=== PATIENT | female | born 1955 | race Caucasian/White ===

== ENCOUNTER → 2024-06-05 | Outpatient (CLI) | payer MEDICARE, SELFPAY ==
--- NOTE | 2024-06-05 07:15 | XR_ITS ---
Examination: Breast ultrasound, unilateral, left complete Date and time of exam: June 05, 2024 0724 hours INDICATIONS: Mammogram 02/04/2024 5 mm nodule upper outer left breast Technique: Real-time santiago scale ultrasonographic imaging performed left breast including all 4 quadrants as well as nipple retroareolar and axillary region. Findings: No cystic or solid mass IMPRESSION: BI-RADS Category 1: Negative study
--- NOTE | 2024-06-05 08:00 | XR_ITS ---
Examination: Diagnostic digital mammography, unilateral, left Computer aided detection 3-D breast Tomosynthesis, unilateral Date and time of exam: June 05, 2024 0737 hours INDICATIONS: Mammogram 02/04/2024 5 mm nodule outer left breast Technique: Nonmagnified MLO, CC views of the left breast have been obtained, reconstructed from 3-D Tomosynthesis images. R2 computer aided detection program utilized for evaluation of suspicious masses and/or abnormal calcifications. 3-D Tomosynthesis images obtained. Findings: The breast is heterogeneously dense, which may obscure small masses 5 mm focal asymmetry is confirmed nipple level left breast on the spot compression cc view Impression: BI-RADS category 3: Probably benign findings One additional 6 month left mammogram follow-up is needed including spot compression cc view to document stability of 5 mm focal asymmetry described above
== END | disposition home or self-care (01) ==
PROVIDERS: PCP Advanced Practice Midwife; Referring Provider Advanced Practice Midwife; Visit Provider Advanced Practice Midwife
DX: R92.332 Mammographic heterogeneous density, left breast (principal); N64.89 Other specified disorders of breast
CPT/HCPCS: 76641; 77061; 77065; G0279

== ENCOUNTER → 2024-09-29 | Outpatient (CLI) | payer MEDICARE, SELFPAY ==
--- NOTE | 2024-09-29 16:30 | XR_ITS ---
Examination: CT abdomen without intravenous contrast. Coronal 2-D reconstructions. Sagittal 2-D reconstructions. Date and time of exam:September 29, 2024 1634 hours INDICATIONS: Left upper abdominal pain beginning one week ago, outside abdomen sonogram last week left kidney mass CTDI: vol (mGy): 5.7 DLP: (mGycm): 190 Technique: Axial images of the abdomen have been obtained, 3 mm slice thickness, without intravenous contrast 2-D sagittal coronal reconstructions Low dose protocols were performed. One or more of the following dose reduction techniques were used; automated exposure control, adjustment of the mA and/or KV according to patient size, use of iterative reconstruction technique. Findings: 2 mm pulmonary nodule left lower lobe 4 mm pulmonary nodule lingular segment 8 mm pulmonary nodule right lower lobe 13 mm pulmonary nodule left lower lobe No focal liver or splenic lesions Absent gallbladder No pancreatic mass No adrenal mass Fat-containing mass right kidney, 19 mm Low density mass lower pole left kidney, 12 mm Aorta normal size No bowel obstruction IMPRESSION: Multiple pulmonary nodules as above, recommend CT chest without contrast follow-up to exclude pulmonary nodular metastatic disease Bilateral renal masses, recommend MRI abdomen kidneys follow up pre and post contrast to assess these renal masses
== END | disposition home or self-care (01) ==
LOC: CCTX 16:06
PROVIDERS: PCP Family Medicine
DX: R91.8 Other nonspecific abnormal finding of lung field (principal); N28.89 Other specified disorders of kidney and ureter
CPT/HCPCS: 74150

== ENCOUNTER 2024-11-13 21:57 | Emergency (ER) | payer MEDICARE, BC, SELFPAY ==
[2024-11-13 21:59] VITALS: BMI 22.3
[2024-11-13 22:10] VITALS: BP 144/93; PULSE 75; RESP 20; TEMP 36.4; O2SAT 98
--- NOTE | 2024-11-13 22:20 | XR_ITS ---
Examination: CT abdomen and pelvis without contrast. Coronal 3-D reconstructions. Sagittal 2-D reconstructions. Date and time of exam:November 13, 2024 11:11 PM INDICATIONS: Onset left flank pain today CTDI: vol (mGy): 6 DLP: (mGycm): 369 Technique: Axial images of the abdomen have been obtained, 3 mm slice thickness Intravenous contrast material has not been administered. Low dose protocols were performed. One or more of the following dose reduction techniques were used; automated exposure control, adjustment of the mA and/or KV according to patient size, use of iterative reconstruction technique. Findings: No change in pulmonary nodules lower lung zones No focal liver or splenic lesion No pancreatic or adrenal mass Stable 19 mm fat-containing right renal mass and 12 mm posterior lower left renal mass No hydronephrosis or ureteral calculi Aorta normal size No pericecal inflammatory change Multiple calcified uterine fibroids,. 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 Urinary bladder wall thickening, differential would include cystitis
[2024-11-13] MEDS: KETOROLAC INJ 60 MG/2 ML VIAL 30 MG IM (22:49)
[2024-11-13 23:08] LABS: Basophils # (Auto) 0.1 Thou/mm3 (0.0-0.2); Basophils % (Auto) 2 % (0-2.5); Eosinophils # (Auto) 0.6 Thou/mm3 (0.0-0.5); Eosinophils % (Auto) 10 % (0-10); Hematocrit 35.8 % (36.0-46.0); Hemoglobin 12.2 g/dL (12.0-16.0); Immature Granulocytes % (Auto) 0 % (0-0); Immature Granulocytes Auto 0.01 Thou/mm3 (0.00-0.00); Lymphocytes # (Auto) 1.6 Thou/mm3 (1.0-4.8); Lymphocytes % (Auto) 28 % (10-50); Mean Corpuscular HGB Conc 34.1 g/dl (31.0-37.0); Mean Corpuscular Volume 88 fL (80-100); Monocytes # (Auto) 0.7 Thou/mm3 (0.0-0.8); Monocytes % (Auto) 13 % (0-12); Neutrophils # (Auto) 2.6 Thou/mm3 (1.8-7.7); Neutrophils % (Auto) 47 % (37-80); Nucleated Red Blood Cell % 0 /100 WBC (0); Platelet Count 315 Thou/mm3 (140-440); RDW Standard Deviation 40.3 fL (36.4-46.3); Red Blood Count 4.06 Miln/mm3 (4.00-5.20); White Blood Count 5.6 Thou/mm3 (3.6-11.0)
[2024-11-13 23:20] LABS: Collection Type, Urine Clean Catch
[2024-11-13 23:26] LABS: Alanine Aminotransferase 131 U/L (10-49); Albumin, Serum 4.3 gm/dL (3.4-4.8); Albumin/Globulin Ratio 1.9 (1.2-2.2); Alkaline Phosphatase 274 U/L (46-116); Anion Gap 8 (7-16); Aspartate Amino Transferase 126 U/L (0-34); BUN/Creatinine Ratio 31 Ratio (12-20); Bilirubin,Total 0.4 mg/dL (0.3-1.2); Blood Urea Nitrogen 31 mg/dL (9-23); Calcium 10.3 mg/dL (8.3-10.6); Calcium (Corrected) 10.3 mg/dL (8.5-10.1); Carbon Dioxide 23.7 mMol/L (20.0-31.0); Chloride 105 mMol/L (98-107); Estimated Creatinine Clearance 46.5 mL/min (>60); Globulin 2.3 gm/dL (2.3-3.5); Glucose 112 mg/dL (74-106); Lipase 72 U/L (12-53); Osmolality,Calculated 281 (275-295); Potassium 4.1 mMol/L (3.4-5.1); Sodium 137 mMol/L (136-145); Total Protein 6.6 gm/dL (5.7-8.2); eGFR > 60 See Note
[2024-11-13 23:28] LABS: Bilirubin,Urine Negative (Negative); Blood,Urine Negative (Negative); Clarity,Urine Clear (Clear/Hazy); Color,Urine Yellow (Lt Yel-Yel); Glucose, Urine Negative (Negative); Ketones,Urine Trace (Negative); Leukocyte Esterase,Urine 2+ (Negative); Nitrite,Urine Negative (Negative); Protein,Urine Negative (Neg - Trace); Specific Gravity,Urine 1.025 (1.001-1.035)
[2024-11-13 23:41] LABS: RBC,Urine 3 /hpf (0-3); WBC,Urine 153 /hpf (0-5)
[2024-11-13 23:44] LABS: Culture Indicated,Urine Contaminated; Squamous Epithelial Cell,Urine 25 /hpf (0-5)
[2024-11-13 23:45] LABS: Bacteria,Urine 1+
[2024-11-13 23:46] LABS: Mucus,Urine 2+ /lpf
[2024-11-13 23:47] LABS: Calcium Oxalate Crystals,Urine 3+
[2024-11-14] MEDS: ONDANSETRON ODT 4 MG TABRAP PO (00:43)
[2024-11-14] MEDS: cefTRIAXone 1,000 MG, LIDOCAINE 1% 20 ML 2.1 ML IM (00:44)
[2024-11-14] MEDS: MORPHINE SULF INJ 10 MG/ML VIAL 5 MG IM (00:44)
[2024-11-14 01:08] VITALS: RESP 16
--- NOTE | 2024-11-14 04:04 | EDNOTE_ITS ---
<Statement entered by Blanquita Kuo MD - 11/25/24 21:11> As co-signing physician, I was present and available for consult prn. I concur with the plan and care as documented by the midlevel provider. ED Back Injury Pain RME/HPI General Chief Complaint: Back Pain/Injury Stated Complaint: LEFT FLANK PAIN Time Seen by Provider: 11/13/24 22:20 Arrival date/time: 11/13/24 21:57 69F with history of HTN and known L kidney mass pending work-up at [facility] presents to ED with several days of L flank pain. Patient denies hematuria/dysuria and N/V. Limitations: no limitations Related Data Previous Rx's ?Medication ?Instructions ?Recorded hydrocodone 5 mg-acetaminophen 300 1 tab PO Q6H #10 ta bs 07/15/18 mg tablet ibuprofen 600 mg tablet 600 mg PO Q6H #60 tabs 07/15 amoxicillin 500 mg tablet 500 mg PO BID #14 tabs 12/31 lisinopril 20 mg tablet 20 mg PO QDAY #30 tabs 12/31 cefuroxime axetil 500 mg tablet 500 mg PO BID 7 days # 14 tabs 11/14/24 Allergies Allergy/AdvReac Type Severity Reaction Status Date / Time codeine Allergy Intermediate Vomiting Verified 11/13/24 21:58 hydrocodone Allergy Intermediate Vomiting Verified 11/13/24 21:58 Review of Systems Review of Systems Systems Reviewed: All systems reviewed, normal except as documented Constitutional Constitutional: Reports system reviewed and no additional complaints, except as documented, Denies fever(s) and Denies headache(s) ENT Ears, Nose, Mouth, and Throat: Denies disequilibrium and Denies headache(s) Cardiovascular Cardiovascular: Reports system reviewed and no additional complaints, except as documented, Denies chest pain and Denies dyspnea Respiratory Respiratory: Reports system reviewed and no additional complaints, except as documented, Denies cough and Denies dyspnea Gastrointestinal Gastrointestinal: Reports system reviewed and no additional complaints, except as documented, Denies abdominal pain, Denies nausea and Denies vomiting Genitourinary Genitourinary: Reports as per HPI and Reports flank pain Neurologic Neurologic: Reports system reviewed and no additional complaints, except as documented, Denies confusion, Denies disequilibrium and Denies headache(s) Psychiatric Psychiatric: Denies confusion Past Medical History Social History SMOKING STATUS: Never smoker ED Exam General Limitations: Present no limitations General appearance: Present alert and in no apparent distress Head Head exam: Present atraumatic Eye Eye exam: Present normal appearance, PERRL and EOMI ENT ENT exam: Present normal exam, normal oropharynx and mucous membranes moist Neck Neck exam: Present normal inspection, full ROM and trachea midline Chest Chest inspection: Present normal inspection and symmetric chest wall rise Respiratory Respiratory exam: Present normal lung sounds bilaterally Cardiovascular Cardiovascular exam: Present regular rate, normal rhythm and normal heart sounds Abdominal Exam Abdominal exam: Present soft and normal bowel sounds Extremities Exam Extremities exam: Present normal inspection and full ROM Back Exam Back exam: Present normal inspection and full ROM Neurological Exam Neurological exam: Present alert, oriented X3 and CN II-XII intact Psychiatric Psychiatric exam: Present normal affect and normal mood Skin Skin exam: Present warm, dry, intact and normal color Course Quality Measures none Orders Category Date Time Status CT abdomen pelvis wo con Stat Exams 11/13/24 22:20 Completed CBC Stat Lab 11/13/24 22:40 Completed CMP [Comprehensive Metabolic Panel] Stat Lab 11/13/24 22:40 Completed Lipase Stat Lab 11/13/24 22:40 Completed Urinalysis, C/S if Indicated Stat Lab 11/13/24 23:11 Completed Ketorolac Inj [Toradol Inj] Med 11/13/24 22:20 Discontinued 30 mg IM X1 ONE Morphine Inj Med 11/14/24 00:33 Discontinued 5 mg IM X1 ONE Ondansetron Odt [Zofran Odt] Med 11/14/24 00:33 Discontinued 4 mg PO X1 ONE cefTRIAXone [Rocephin] 1,000 mg Med 11/14/24 00:33 Discontinued Lidocaine 1% 20 ml [Xylocaine 1% 20 ML] 2.1 ml IM X1 Vital Signs Vital signs: Vital Signs Temperature 97.5 F 11/13/24 22:10 Pulse Rate 75 11/13/24 22:10 Respiratory Rate 20 11/13/24 22:10 Blood Pressure 144/93 H 11/13/24 22:10 Pulse Oximetry (%) 98 11/13/24 22:10 Oxygen Delivery Method Room Air 11/13/24 22:10 O2 at 98% on RA and WNLs Back Pain / Injury MDM Narrative MDM Narrative:: 69F with history of HTN and known L kidney mass pending work-up at [facility] presents to ED with several days of L flank pain. Patient denies hematuria/dysuria and N/V. Physical exam reveals no flank tenderness. Patient is afebrile, alert, but appears to appears to pain. CT unremarkable except for known L kidney mass. Possible cystitis. UA confirms UTI, though it was contaminated. Will treat given pain. CMP unremarkable. Pain improved with meds. Patient data External records reviewed:: [facility] previous records Clinical information provided by:: patient Social determinants that could affect healthcare access:: none Patient has the following chronic illnesses:: HTN How is presenting disease/condition affected by chronic disease/condition?: uneffected by Evaluation data The following diagnostics were reviewed and interpreted by me:: lab results and radiology exam(s) Lab and/or radiology exams considered but not ordered:: ordered Interpretation Summary: above Medications / Prescriptions Medications or Prescriptions considered but not ordered:: ordered Medication administrations:: Medication Administration History Discontinued Medications Ceftriaxone Sodium 1,000 mg/ (Lidocaine HCl 2.1 ml) 0 mg IM X1 ONE Stop: 11/14/24 00:34 Last Admin: 11/14/24 00:44 Dose: 1,000 mg Documented By: CVL Ketorolac Tromethamine (Ketorolac Inj 60 Mg/2 Ml Vial) 30 mg IM X1 ONE Stop: 11/13/24 22:21 Last Admin: 11/13/24 22:49 Dose: 30 mg Documented By: OA Morphine Sulfate (Morphine Sulf Inj 10 Mg/Ml Vial) 5 mg IM X1 ONE Stop: 11/14/24 00:34 Last Admin: 11/14/24 00:44 Dose: 5 mg Documented By: CVL Ondansetron HCl (Ondansetron Odt 4 Mg Tabrap) 4 mg PO X1 ONE; Protocol Stop: 11/14/24 00:34 Last Admin: 11/14/24 00:43 Dose: 4 mg Documented By: CVL above Consultations Consultation(s) initiated? (list below): No Diagnosis Differential diagnosis back pain/injury: lumbar radiculopathy, sciatica, strain of lumbar region, renal colic, pyelonephritis, thoracic back pain, AAA, discitis and other (UTI) Most likely diagnosis given after review of the tests above:: UTI Admission Indicated Admission indicated?: not indicated Admission Request Was there a request for admission?: No Disposition Plan Disposition Plan: Discharge Discharge Attestation Discharge Attestation: The patient and all family members were given an opportunity to ask questions and understood the discharge instructions. Discharge instructions specifically effects, indications for sooner follow up or return to the emergency department, and the expected course of current diagnosis. Patient condition: Stable Discharge Plan Plan Patient Disposition: HOME (Self Care) Discharge Disposition comment: Stable Prescriptions/Referrals Prescriptions/Med Rec: New cefuroxime axetil 500 mg tablet 500 mg PO BID 7 Days Qty: 14 0RF No Action ibuprofen 600 mg tablet 600 mg PO Q6H Qty: 60 0RF hydrocodone-acetaminophen 5-300 mg tablet 1 tab PO Q6H MDD 4; Workers Comp Qty: 10 0RF lisinopril 20 mg tablet 20 mg PO QDAY Qty: 30 1RF amoxicillin 500 mg tablet 500 mg PO BID Qty: 14 0RF Referrals: Blanquita Farrar FNP [Primary Care Provider] - In 1 week Problem List Clinical Impression: UTI (urinary tract infection) Patient/Caregiver Discharge Instructions Education Materials: ED CYSTITIS Female Adult Additional Instructions: Please follow-up with PCP within 24-48 hours and return immediately if symptoms worsen. Good luck with [facility] appts! Print Language: [place] Stand Alone Forms: Patient Portal Info Letter FLACA/ALEXANDRE Supervising Physician FLACA/ALEXANDRE Supervising Physician: Dr. Kuo
== END 2024-11-14 01:09 | disposition home or self-care (01) ==
PROVIDERS: Physician Assistant; Emergency Provider Emergency Medicine; PCP Nurse Practitioner Family
DX: N39.0 Urinary tract infection, site not specified (principal); R10.9 Unspecified abdominal pain
CPT/HCPCS: 36415; 74176; 80053; 81001; 83690; 85025; 96372; 99284; J0696; J1885; J2270; J3490; Q0162

== ENCOUNTER 2025-01-15 09:00 | Emergency (ER) | payer MEDICARE, BC, SELFPAY ==
--- NOTE | 2025-01-15 | XR_ITS ---
Examination: MRI thoracic spine, without intravenous contrast. MRI thoracic spine , with intravenous contrast. Exam date and time: January 15, 2025 1250 hours INDICATIONS: Back pain this week, history renal tumors, osteolytic lesion destroying the T11 vertebral body extending into the spinal canal on CT chest January 15, 2025 Technique: Multiple axial, sagittal and coronal images of the thoracic spine have been obtained with the Siemens high-resolution 1.5 [employer] MRI scanner. Images obtained included T2 weighted fat suppressed sagittal sections, TR 3500, TE 46, T2 weighted coronal fat suppressed images, TR 3050, TE 84, T2-weighted transverse fat suppressed images, TR 30-60, TE 63, proton density transverse images, TR 4720, TE 46, and T1 weighted coronal images, TR 560, TE 13. Axial, sagittal and coronal images are obtained post intravenous injection 19 cc gadolinium. 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
--- NOTE | 2025-01-15 | XR_ITS ---
Examination: MRI lumbar spine, without intravenous contrast. MRI lumbar spine , with intravenous contrast. Exam date and time: January 15, 2025 1250 hours INDICATIONS: Chest pain back pain this week, history renal tumors, extensive bone destruction involving the T11 vertebral body on CT chest today Technique: Multiple axial, sagittal and coronal images of the lumbar spine have been obtained with the Siemens high-resolution 1.5 [employer] MRI scanner. Images obtained included T2 weighted fat suppressed sagittal sections, TR 3500, TE 46, T2 weighted coronal fat suppressed images, TR 3050, TE 84, T2-weighted transverse fat suppressed images, TR 30-60, TE 63, proton density transverse images, TR 4720, TE 46, and T1 weighted coronal images, TR 560, TE 13. Axial, sagittal and coronal images are obtained post intravenous injection 19 cc gadolinium. Findings: Adequate alignment lumbar vertebral bodies Partial visualization of the tumor replacing the T11 vertebral body 15 mm focus of enhancement in the L3 vertebral body which does not extend to the spinal canal, axial image 23 sagittal image 11, this appears to represent hemangiomatous change Diffuse lumbar disc narrowing most prominent L4-L5, L5-S1 IMPRESSION: No enhancing osseous metastatic lesions depicted No enhancing epidural tumor impinging upon the conus medullaris or cauda equina
--- NOTE | 2025-01-15 | XR_ITS ---
Examination: MRI abdomen with intravenous contrast. MRI abdomen without intravenous contrast. Date and time of exam: January 15, 2025 1250 hours INDICATIONS: CT abdomen study today 22 mm right renal angiomyolipoma Hypodense mass 15 mm lower left kidney Technique: Multiple axial, sagittal and coronal sections of the abdomen and 19 obtained. Transverse images, TR 6020, TE 107. T1 weighted transverse images, TR 582, TE 9.5. T2-weighted sagittal images, TR 4000, TE 105. T2-weighted sagittal images, TR 4000, TE 5. Coronal images, TR 4210, TE 107. Axial and coronal images are obtained post 19 cc intravenous injection, gadolinium. Findings: No focal liver lesions Common hepatic duct 8 mm no stones Spleen is not enlarged Fat-containing mass without enhancement right kidney, 22 mm consistent with angiomyolipoma Nonenhancing 15 mm cyst lower pole kidney, 13 mm nonenhancing cyst midpole left kidney no enhancing solid left renal mass lesion noted No ascites No adenopathy IMPRESSION: Benign left renal cysts, no solid renal mass lesion noted
[2025-01-15 09:00] VITALS: BMI 22.1
[2025-01-15 09:09] VITALS: BP 178/50; PULSE 68; RESP 18; TEMP 36.6; O2SAT 99
--- NOTE | 2025-01-15 09:21 | XR_ITS ---
Examination: CT chest, without intravenous contrast. CT abdomen, without intravenous contrast. CT pelvis, without intravenous contrast. 2-D sagittal and coronal reconstructions. 3-D reconstructions. Date and time of exam:January 18, [address] abdomen pelvis November 13, 2024 INDICATIONS: History renal tumors, left flank pain today, 12 mm posterior left lower renal mass on CT examination abdomen November 13, 2024, pulmonary nodules in the lower lung zone CTDI vol (mgy) 6.45 DLP (MGycm)446 Technique: Multiple CT images, 3.0 mm slice thickness, obtained chest, abdomen, pelvis, with the high-resolution 64 slice scanner.. Sagittal and coronal 2-D reconstructions are obtained. 3-D reconstructions Low dose protocols were performed. One or more of the following dose reduction techniques were used; automated exposure control, adjustment of the mA and/or KV according to patient size, use of iterative reconstruction technique. Findings: Multiple high periaortic lymph nodes measuring up to 10 mm 26 mm pretracheal lymph node Mild bilateral hilar lymphadenopathy Suspicious for subcarinal lymphadenopathy There are at least 25 mm bilateral subcentimeter pulmonary nodules, the largest in the right lower lobe 7 mm and 1 nodule with spiculated margins in the left lower lobe 16 mm No pneumonia or pulmonary edema Trace pericardial effusion No focal liver or splenic lesions Absent gallbladder Common hepatic duct 11 mm Right renal angiomyolipoma 22 mm Hypodense mass lower pole left kidney, 15 mm, which is difficult to assess on this noncontrast study Aortic calcification no aneurysmal dilatation No bowel obstruction No pericecal inflammatory change Anteverted uterus with multiple uterine fundal areas of calcification No bladder mass or bladder calculi Prominent osteopenia Osteolytic lesion destroying much of the central body of T11, axial image 155 sagittal image 132 which appears to extend into the spinal canal with paraspinal soft tissue mass Chronic erosions posterior margin third sacral segment IMPRESSION: 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
--- NOTE | 2025-01-15 09:22 | EDRME_ITS ---
Rapid Medical Screening Exam [facility] Arrival date/time: 01/15/25 09:00 CC: Left low back pain that now radiates to the abdomen. Abrupt onset last night has a history of chronic low back pain but never as severe as this or with abrupt onset. Took ibuprofen 800 mg 1 hour ago hours prior to that took Tylenol. States she cannot tolerate codeine medications. No active nausea or vomiting states she has been constipated for the past several days. Chief Complaint: Back Pain/Injury Time Seen by Provider: 01/15/25 09:18 Vital signs: Vital Signs Temperature 97.8 F 01/15/25 09:09 Pulse Rate 68 01/15/25 09:09 Respiratory Rate 18 01/15/25 09:09 Blood Pressure 178/50 H 01/15/25 09:09 Pulse Oximetry (%) 99 01/15/25 09:09 Oxygen Delivery Method Room Air 01/15/25 09:09
[2025-01-15] MEDS: MORPHINE SULF INJ 10 MG/ML VIAL 4 MG IVP ×3 (09:50→22:40)
[2025-01-15] MEDS: ONDANSETRON INJ 2 MG/ML INJ 2 ML 4 MG IVP (09:51)
[2025-01-15 10:16] LABS: Basophils # (Auto) 0.1 Thou/mm3 (0.0-0.2); Basophils % (Auto) 1 % (0-2.5); Eosinophils # (Auto) 0.2 Thou/mm3 (0.0-0.5); Eosinophils % (Auto) 3 % (0-10); Hematocrit 41.5 % (36.0-46.0); Hemoglobin 13.7 g/dL (12.0-16.0); Immature Granulocytes Auto 0.02 Thou/mm3 (0.00-0.00); Lymphocytes # (Auto) 1.2 Thou/mm3 (1.0-4.8); Lymphocytes % (Auto) 13 % (10-50); Mean Corpuscular HGB Conc 33.0 g/dl (31.0-37.0); Mean Corpuscular Hemoglobin 29.6 pg (25.0-35.0); Mean Corpuscular Volume 90 fL (80-100); Monocytes # (Auto) 0.8 Thou/mm3 (0.0-0.8); Monocytes % (Auto) 9 % (0-12); Neutrophils # (Auto) 6.5 Thou/mm3 (1.8-7.7); Neutrophils % (Auto) 74 % (37-80); Nucleated Red Blood Cell # 0.00 Thou/mm3 (0.00-0.00); Nucleated Red Blood Cell % 0 /100 WBC (0); Platelet Count 370 Thou/mm3 (140-440); RDW Standard Deviation 40.7 fL (36.4-46.3); Red Blood Count 4.63 Miln/mm3 (4.00-5.20); White Blood Count 8.8 Thou/mm3 (3.6-11.0)
[2025-01-15 10:35] LABS: Alanine Aminotransferase 28 U/L (10-49); Albumin, Serum 5.0 gm/dL (3.4-4.8); Albumin/Globulin Ratio 2.0 (1.2-2.2); Alkaline Phosphatase 141 U/L (46-116); Anion Gap 10 (7-16); Aspartate Amino Transferase 39 U/L (0-34); BUN/Creatinine Ratio 14 Ratio (12-20); Bilirubin,Total 0.7 mg/dL (0.3-1.2); Blood Urea Nitrogen 15 mg/dL (9-23); Calcium 11.3 mg/dL (8.3-10.6); Calcium (Corrected) 11.3 mg/dL (8.5-10.1); Carbon Dioxide 23.1 mMol/L (20.0-31.0); Chloride 103 mMol/L (98-107); Creatinine (Component) 1.1 mg/dL (0.6-1.3); Estimated Creatinine Clearance 42.3 mL/min (>60); Globulin 2.5 gm/dL (2.3-3.5); Glucose 102 mg/dL (74-106); Osmolality,Calculated 272 (275-295); Potassium 5.0 mMol/L (3.4-5.1); Sodium 136 mMol/L (136-145); Total Protein 7.5 gm/dL (5.7-8.2); eGFR 55 See Note
--- NOTE | 2025-01-15 10:37 | PD.EDBACK ---
ED Back Injury Pain RME/HPI General Chief Complaint: Back Pain/Injury Stated Complaint: BACK PAIN Time Seen by Provider: 01/15/25 09:18 Arrival date/time: 01/15/25 09:00 RME / HPI RME / HPI Narrative: 01/15/25 09:00 CC: Left low back pain that now radiates to the abdomen. Abrupt onset last night has a history of chronic low back pain but never as severe as this or with abrupt onset. Took ibuprofen 800 mg 1 hour ago hours prior to that took Tylenol. States she cannot tolerate codeine medications. No active nausea or vomiting states she has been constipated for the past several days. DR. MCNEILL MAIN ED EVALUATION: 69-year-old female with past medical history of kidney tumor, lung nodules, hypercalcemia, and osteomyelitis of T11 presents with worsening back pain now radiating to the abdomen. Pain began around 09/2024 and has progressed in severity. Previously controlled with Tylenol and ibuprofen, but not relieved by these medications today. Denies numbness, weakness, incontinence, or weight loss. No fever or chills. She is currently under the care of [facility] since 09/2024. Also, under the care of specialists including a lung doctor in [place] and an abdominal/pancreatic specialist in [place]. Spine evaluation is pending. 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 Surrency quantitative free light was elevated at 26.2. Related Data Previous Rx's ?Medication ?Instructions ?Recorded hydrocodone 5 mg-acetaminophen 300 1 tab PO Q6H #10 tabs 07/15/18 mg tablet ibuprofen 600 mg tablet 600 mg PO Q6H #60 tabs 07/15/18 amoxicillin 500 mg tablet 500 mg PO BID #14 tabs 12/31/21 lisinopril 20 mg tablet 20 mg PO QDAY #30 tabs 12/31/21 Allergies Allergy/AdvReac Type Severity Reaction Status Date / Time codeine Allergy Intermediate Vomiting Verified 01/15/25 09:00 hydrocodone Allergy Intermediate Vomiting Verified 01/15/25 09:00 Review of Systems Review of Systems Systems Reviewed: All systems reviewed, normal except as documented Past Medical History Past Medical History CARDIAC: Positive Hypercholesterolemia and Hypertension RESPIRATORY: Positive Respiratory Disorders (LUNG NODULES) GENITOURINARY: Positive Renal Disease (KIDNEY TUMOR) Family History FAMILY HISTORY: Positive Family Cancer (PT'S MOM KIDNEY CANCER) Surgical History SURGICAL: Positive Knee Sx (L PATELLA SURGERY) Social History SMOKING STATUS: Never smoker SUBSTANCE USE: does not use ALCOHOL: Never ED Exam Narrative Physical exam: Constitutional: Awake, alert, nontoxic, looks uncomfortable and currently moaning in pain HEENT: NC, AT, EOMI Neck: Supple CV: RRR, no m/r/g Lungs: CTAB, no w/r/r, no respiratory distress. Abd: Tender to the left flank and left CVA Extremities: No deformities, no edema noted Neuro: AAOx3, CN 2-12 GIBL, no acute neuro deficit noted. Skin: Warm, dry, intact Course Course Course Narrative: 1520h: MRI results of thoracic and lumbar spine are back with the following findings: Bone destruction, extensive involving the T11 vertebral body, extending into the right pedicle, however, tumor does not extend intradural and does not impinge upon the thoracic cord. There is a meningioma exchanged at T7 IMPRESSION: Findings most consistent with osseous metastatic disease destroying the T11 vertebral body. No extra medullary intradural tumor at this level is noted, no impingement upon the thoracic cord. Findings: Adequate alignment lumbar vertebral bodies Partial visualization of the tumor replacing the T11 vertebral body 15 mm focus of enhancement in the L3 vertebral body which does not extend to the spinal canal, axial image 23 sagittal image 11, this appears to represent hemangiomatous change Diffuse lumbar disc narrowing most prominent L4-L5, L5-S1 IMPRESSION: No enhancing osseous metastatic lesions depicted No enhancing epidural tumor impinging upon the conus medullaris or cauda equina. Findings: No focal liver lesions Common hepatic duct 8 mm no stones Spleen is not enlarged Fat-containing mass without enhancement right kidney, 22 mm consistent with angiomyolipoma Nonenhancing 15 mm cyst lower pole kidney, 13 mm nonenhancing cyst midpole left kidney no enhancing solid left renal mass lesion noted No ascites No adenopathy IMPRESSION: Benign left renal cysts, no solid renal mass lesion noted 1547: Discussed test HPI, PMHx, lab, radiology results including CT and MRIs and/or management with Dr. Clifton. Recommends transfer to higher level of care for additional testing and treatment including biopsy and radiation. Also recommends giving dexamethasone 4 mg 3 times daily at this time. Given patient's current pain level, will also give additional dose of morphine 4 mg. 1800h: Patient signed out to Dr. Calderon pending acceptance of transfer. Quality Measures none Orders Category Date Time Status MRI Screening NOW Care 01/15/25 11:11 Active MRI Screening NOW Care 01/15/25 11:13 Active Saline [Insert IV] NOW Care 01/15/25 09:21 Active Referral - [employer] Stat Cons 01/15/25 15:[address] chest abdomen pelvis wo Stat Exams 01/15/25 09:21 Completed MR abdomen wo/w con Stat Exams 01/15/25 Completed MR lumbar spine wo/w con Stat Exams 01/15/25 Completed MR thoracic spine wo/w con Stat Exams 01/15/25 Completed CBC Stat Lab 01/15/25 09:48 Completed CMP [Comprehensive Metabolic Panel] Stat Lab 01/15/25 09:48 Completed Drug Screen,Urine Stat Lab 01/15/25 11:48 Completed Urinalysis Stat Lab 01/15/25 11:48 Completed ALPRazoLAM [Xanax] Med 01/15/25 12:17 Discontinued 0.5 mg PO X1 ONE Dexamethasone Inj [Decadron Inj] Med 01/15/25 16:27 Discontinued 4 mg IVP X1 ONE Ketorolac Inj [Toradol Inj] Med 01/15/25 10:34 Discontinued 30 mg IVP X1 ONE Morphine Inj Med 01/15/25 09:24 Discontinued 4 mg IVP X1 ONE Morphine Inj Med 01/15/25 16:28 Discontinued 4 mg IVP X1 ONE Ondansetron Inj [Zofran Inj] Med 01/15/25 09:24 Discontinued 4 mg IVP X1 ONE Sodium Chloride 0.9% 1000 ml [Ns] 1,500 ml Med 01/15/25 11:15 Discontinued IV 500 mls/hr Vital Signs Vital signs: Vital Signs Temperature 97.8 F 01/15/25 09:09 Pulse Rate 68 01/15/25 09:09 Respiratory Rate 18 01/15/25 09:09 Blood Pressure 178/50 H 01/15/25 09:09 Pulse Oximetry (%) 99 01/15/25 09:09 Oxygen Delivery Method Room Air 01/15/25 09:09 Back Pain / Injury MDM Narrative MDM Narrative:: Cindy Zaman am scribing for and in the presence of Dr. Mcneill. Patient data External records reviewed:: [facility] previous records and Other (specify) (phone portal reports and labs) Clinical information provided by:: patient and family Social determinants that could affect healthcare access:: none Patient has the following chronic illnesses:: kidney tumor, lung nodules, hypercalcemia, and osteomyelitis of T11 How is presenting disease/condition affected by chronic disease/condition?: exacerbated by Evaluation data The following diagnostics were reviewed and interpreted by me:: lab results and radiology exam(s) Lab and/or radiology exams considered but not ordered:: none Interpretation Summary: Procedure(s): CT chest abdomen pelvis wo Accession Number(s): [id number] cc: Nakul Villatoro NP; Amol Crystal MD; Ashley Izquierdo MD~ Examination: CT chest, without intravenous contrast. CT abdomen, without intravenous contrast. CT pelvis, without intravenous contrast. 2-D sagittal and coronal reconstructions. 3-D reconstructions. Date and time of exam:January 18, [address] abdomen pelvis November 13, 2024 INDICATIONS: History renal tumors, left flank pain today, 12 mm posterior left lower renal mass on CT examination abdomen November 13, 2024, pulmonary nodules in the lower lung zone CTDI vol (mgy) 6.45 DLP (MGycm)446 Technique: Multiple CT images, 3.0 mm slice thickness, obtained chest, abdomen, pelvis, with the high-resolution 64 slice scanner.. Sagittal and coronal 2-D reconstructions are obtained. 3-D reconstructions Low dose protocols were performed. One or more of the following dose reduction techniques were used; automated exposure control, adjustment of the mA and/or KV according to patient size, use of iterative reconstruction technique. Findings: Multiple high periaortic lymph nodes measuring up to 10 mm 26 mm pretracheal lymph node Mild bilateral hilar lymphadenopathy Suspicious for subcarinal lymphadenopathy There are at least 25 mm bilateral subcentimeter pulmonary nodules, the largest in the right lower lobe 7 mm and 1 nodule with spiculated margins in the left lower lobe 16 mm No pneumonia or pulmonary edema Trace pericardial effusion No focal liver or splenic lesions Absent gallbladder Common hepatic duct 11 mm Right renal angiomyolipoma 22 mm Hypodense mass lower pole left kidney, 15 mm, which is difficult to assess on this noncontrast study Aortic calcification no aneurysmal dilatation No bowel obstruction No pericecal inflammatory change Anteverted uterus with multiple uterine fundal areas of calcification No bladder mass or bladder calculi Prominent osteopenia Osteolytic lesion destroying much of the central body of T11, axial image 155 sagittal image 132 which appears to extend into the spinal canal with paraspinal soft tissue mass Chronic erosions posterior margin third sacral segment IMPRESSION: 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 Dictated By: Amol Crystal MD Procedure(s): MR thoracic spine wo/w baldo Accession Number(s): [id number] cc: Amol Crystal MD; Paola Mcneill MD; Ashley Izquierdo MD~ Examination: MRI thoracic spine, without intravenous contrast. MRI thoracic spine , with intravenous contrast. Exam date and time: January 15, 2025 1250 hours INDICATIONS: Back pain this week, history renal tumors, osteolytic lesion destroying the T11 vertebral body extending into the spinal canal on CT chest January 15, 2025 Technique: Multiple axial, sagittal and coronal images of the thoracic spine have been obtained with the Siemens high-resolution 1.5 [employer] MRI scanner. Images obtained included T2 weighted fat suppressed sagittal sections, TR 3500, TE 46, T2 weighted coronal fat suppressed images, TR 3050, TE 84, T2-weighted transverse fat suppressed images, TR 30-60, TE 63, proton density transverse images, TR 4720, TE 46, and T1 weighted coronal images, TR 560, TE 13. Axial, sagittal and coronal images are obtained post intravenous injection 19 cc gadolinium. 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 Dictated By: Amol Crystal MD Procedure(s): MR lumbar spine wo/w con Accession Number(s): [id number] cc: Amol Crystal MD; Paola Mcneill MD; Ashley Izquierdo MD~ Examination: MRI lumbar spine, without intravenous contrast. MRI lumbar spine , with intravenous contrast. Exam date and time: January 15, 2025 1250 hours INDICATIONS: Chest pain back pain this week, history renal tumors, extensive bone destruction involving the T11 vertebral body on CT chest today Technique: Multiple axial, sagittal and coronal images of the lumbar spine have been obtained with the Siemens high-resolution 1.5 [employer] MRI scanner. Images obtained included T2 weighted fat suppressed sagittal sections, TR 3500, TE 46, T2 weighted coronal fat suppressed images, TR 3050, TE 84, T2-weighted transverse fat suppressed images, TR 30-60, TE 63, proton density transverse images, TR 4720, TE 46, and T1 weighted coronal images, TR 560, TE 13. Axial, sagittal and coronal images are obtained post intravenous injection 19 cc gadolinium. Findings: Adequate alignment lumbar vertebral bodies Partial visualization of the tumor replacing the T11 vertebral body 15 mm focus of enhancement in the L3 vertebral body which does not extend to the spinal canal, axial image 23 sagittal image 11, this appears to represent hemangiomatous change Diffuse lumbar disc narrowing most prominent L4-L5, L5-S1 IMPRESSION: No enhancing osseous metastatic lesions depicted No enhancing epidural tumor impinging upon the conus medullaris or cauda equina Dictated By: Amol Crystal MD Procedure(s): MR abdomen wo/w con Accession Number(s): [id number] cc: Amol Crystal MD; Paola Mcneill MD; Ashley Izquierdo MD~ Examination: MRI abdomen with intravenous contrast. MRI abdomen without intravenous contrast. Date and time of exam: January 15, 2025 1250 hours INDICATIONS: CT abdomen study today 22 mm right renal angiomyolipoma Hypodense mass 15 mm lower left kidney Technique: Multiple axial, sagittal and coronal sections of the abdomen and 19 obtained. Transverse images, TR 6020, TE 107. T1 weighted transverse images, TR 582, TE 9.5. T2-weighted sagittal images, TR 4000, TE 105. T2-weighted sagittal images, TR 4000, TE 5. Coronal images, TR 4210, TE 107. Axial and coronal images are obtained post 19 cc intravenous injection, gadolinium. Findings: No focal liver lesions Common hepatic duct 8 mm no stones Spleen is not enlarged Fat-containing mass without enhancement right kidney, 22 mm consistent with angiomyolipoma Nonenhancing 15 mm cyst lower pole kidney, 13 mm nonenhancing cyst midpole left kidney no enhancing solid left renal mass lesion noted No ascites No adenopathy IMPRESSION: Benign left renal cysts, no solid renal mass lesion noted Dictated By: Amol Crystal MD Medications / Prescriptions Medications or Prescriptions considered but not ordered:: none Medication administrations:: Medication Administration History Discontinued Medications Alprazolam (Alprazolam 0.25 Mg Tablet) 0.5 mg PO X1 ONE Stop: 01/15/25 12:18 Last Admin: 01/15/25 12:40 Dose: 0.5 mg Documented By: GM Dexamethasone Sodium Phosphate (Dexamethasone Sod Phos Inj 4 Mg/Ml Vial) 4 mg IVP X1 ONE; Protocol Stop: 01/15/25 16:28 Last Admin: 01/15/25 16:37 Dose: 4 mg Documented By: GM Sodium Chloride (Ns) 1,500 mls @ 500 mls/hr IV .Q3H ONE Stop: 01/15/25 14:14 Last Infusion: 01/15/25 12:41 Dose: 0 mls/hr Documented By: Admin: 01/15/25 11:44 Dose: 500 mls/hr Documented By: KM Ketorolac Tromethamine (Ketorolac Inj 30 Mg/Ml Vial) 30 mg IVP X1 ONE Stop: 01/15/25 10:35 Last Admin: 01/15/25 11:44 Dose: 30 mg Documented By: KM Morphine Sulfate (Morphine Sulf Inj 10 Mg/Ml Vial) 4 mg IVP X1 ONE Stop: 01/15/25 09:25 Last Admin: 01/15/25 09:50 Dose: 4 mg Documented By: GM Morphine Sulfate (Morphine Sulf Inj 10 Mg/Ml Vial) 4 mg IVP X1 ONE Stop: 01/15/25 16:29 Last Admin: 01/15/25 16:36 Dose: 4 mg Documented By: GM Ondansetron HCl (Ondansetron Inj 2 Mg/Ml Inj 2 Ml) 4 mg IVP X1 ONE; Protocol Stop: 01/15/25 09:25 Last Admin: 01/15/25 09:51 Dose: 4 mg Documented By: GM see above Consultations Consultation(s) initiated? (list below): Yes Consultation #1 (Physician, Specialty, Details): See course narrative above. Diagnosis Differential diagnosis back pain/injury: other (spinal metastasis, epidural abscess, and progression of osteomyelitis) Most likely diagnosis given after review of the tests above:: T11 metastatic lesion, metastatic cancer, Admission Indicated Admission indicated?: not indicated Explain why admission is indicated or not indicated:: Patient needs higher level of care and will be transferred. Admission Request Was there a request for admission?: No Disposition Plan Disposition Plan: Transfer Discharge Plan Prescriptions/Referrals Prescriptions/Med Rec: No Action ibuprofen 600 mg tablet 600 mg PO Q6H Qty: 60 0RF hydrocodone-acetaminophen 5-300 mg tablet 1 tab PO Q6H MDD 4; Workers Comp Qty: 10 0RF lisinopril 20 mg tablet 20 mg PO QDAY Qty: 30 1RF amoxicillin 500 mg tablet 500 mg PO BID Qty: 14 0RF Referrals: Ashley Izquierdo MD [Primary Care Provider] - In 1 week Problem List Clinical Impression: Metastatic cancer Patient/Caregiver Discharge Instructions Print Language: Iraqi Stand Alone Forms: Daniela Award Info., Patient Portal Info Letter
[2025-01-15] MEDS: SODIUM CHLORIDE 0.9% 1000 ML 1,500 ML 500 ML IV (11:44)
[2025-01-15] MEDS: KETOROLAC INJ 30 MG/ML VIAL IVP (11:44)
[2025-01-15 12:05] LABS: Collection Type, Urine Clean Catch
[2025-01-15 12:10] VITALS: BP 150/77; PULSE 73; RESP 16; TEMP 36.5; O2SAT 99
[2025-01-15 12:15] LABS: Bilirubin,Urine Negative (Negative); Blood,Urine Negative (Negative); Clarity,Urine Clear (Clear/Hazy); Color,Urine Yellow (Lt Yel-Yel); Glucose, Urine Negative (Negative); Hyaline Casts,Urine 1 /hpf (0-1); Ketones,Urine Negative (Negative); Leukocyte Esterase,Urine Positive (Negative); Nitrite,Urine Negative (Negative); PH,Urine 5.5 (5.0-7.0); Protein,Urine Negative (Neg - Trace); RBC,Urine 10 /hpf (0-3); Specific Gravity,Urine 1.024 (1.001-1.035); Squamous Epithelial Cell,Urine 2 /hpf (0-5); Urobilinogen,Urine Negative mg/dL (0.0-1.0); WBC,Urine 1 /hpf (0-5)
[2025-01-15 12:33] LABS: Amphetamine/Methamp Scrn,U Negative (Negative); Barbiturate Screen,Urine Negative (Negative); Benzodiazepines Screen,Urine Negative (Negative); Benzoylecgonine Screen, Ur Negative (Negative); Fentanyl Screen,Urine Negative (Negative); Opiate Screen,Urine Positive (Negative); THC Screen,Urine Positive (Negative)
[2025-01-15 16:08] VITALS: BP 145/68; PULSE 58; RESP 15; TEMP 36.7; O2SAT 99
[2025-01-15] MEDS: DEXAMETHASONE SOD PHOS INJ 4 MG/ML VIAL IVP (16:37)
--- NOTE | 2025-01-15 16:42 | PC.CC ---
Addendum entered by George Jacob RN 01/15/25 19:22: 1915 transfer packet with CD given to charge nurse and gave updates on transfer. Addendum entered by George Jacob RN 01/15/25 18:56: 1856 images pushed over to [facility]. Addendum entered by George Jacob RN 01/15/25 18:52: 1850 clinicals faxed to [facility]. Addendum entered by George Jacob RN 01/15/25 18:46: 1839 received call from Deep at [facility]. She stated the case was presented to the neurosurgery and it was diverted to spine surgery. Dr. Feliciano Cortes/spine surgeon reviewed the case and declining due to capacity. Deep stated they are 103% capacity and their ER patients are being diverted too. Addendum entered by George Jacob RN 01/15/25 17:36: 1722 received call from Deep at [facility], verbal clinicals given. Original Note: 1642 clinicals sent to [facility]. 1630 called [facility], spoke to Johnathan and initiated the transfer. 1550 Dr. Baltazar informed me that pt follows [facility], advised to try [facility] first. [address] Baltazar, pt needs to be transferred for newly diagnosed metastatic disease need neurosurgery for biopsy.
[2025-01-15 18:40] VITALS: BP 147/75; PULSE 59; RESP 16; TEMP 36.6; O2SAT 98
--- NOTE | 2025-01-15 19:12 | PD.EDADDENDU ---
Emergency Room Addendum Addendum Narrative: 190: Care assumed from Dr. Baltazar (emergency physician). Past medical, surgical, social and family history reviewed. Vitals and home medications reviewed. Results and treatment plan discussed. I will assume the care of the patient at this time and will follow the patient, pending transfer. The following addendum documentation note is intended to reflect any pending information, findings, or radiology results not included in the patient?s initial chart by the previous shift scribe. 2026: Blu Lyles made aware of the patient?s HPI, PMHx, lab and/or radiology results. Discussed treatment plan. Will consult an admission to the hospitalist. 2327: Patient accepted to [facility] by Dr. Manning.
--- NOTE | 2025-01-15 20:10 | PC.NURSE ---
CALLED [facility] AND PRESENT PT CASE, ALSO FAXED ALL INFORMATION TO THEM.
[2025-01-15 20:38] VITALS: BP 137/70; PULSE 65; RESP 19; TEMP 36.7; O2SAT 95
--- NOTE | 2025-01-15 20:44 | PC.NURSE ---
CASE PRESENTED TO [facility] ERNESTO LIZ.
--- NOTE | 2025-01-15 22:03 | PC.NURSE ---
[facility] CALLED BACK, TRANSFER NURSE TALKED TO DR. HUNT.
--- NOTE | 2025-01-15 22:04 | PC.NURSE ---
I ASKED CT TO PUSHED IMAGE OF CT'S TO [facility].
--- NOTE | 2025-01-15 22:23 | PC.NURSE ---
Pt c/o of pain all over 02/10, notified Dr. Calderon new verbal order from Dr. Calderon for Morphine 4mg ivp once
[2025-01-15 22:44] VITALS: BP 138/62; PULSE 97; RESP 19; TEMP 36.7
--- NOTE | 2025-01-15 23:25 | PC.NURSE ---
THIS PT IS ACCEPTED TO [facility] BY DR. GARCIA. THIS IS A ER:ER TRANSFER AND NUMBER FOR REPORT IS [phone]. [facility] WAS THE ACCEPTING FACILITY REP I SPOKE WITH.
[2025-01-16 00:58] VITALS: BP 130/74; PULSE 57; RESP 19; TEMP 36.8; O2SAT 97
[2025-01-16 01:35] VITALS: BP 119/66; PULSE 55; RESP 17; TEMP 37.1; O2SAT 94
== END 2025-01-16 01:48 | disposition short-term general hospital (02) ==
PROVIDERS: Registered Nurse General Practice; Emergency Provider Family Medicine; PCP Family Medicine
DX: C79.51 Secondary malignant neoplasm of bone (principal); C78.02 Secondary malignant neoplasm of left lung; C78.01 Secondary malignant neoplasm of right lung; D17.71 Benign lipomatous neoplasm of kidney; N28.1 Cyst of kidney, acquired; E78.00 Pure hypercholesterolemia, unspecified; I10 Essential (primary) hypertension; Z79.899 Other long term (current) drug therapy; Z88.5 Allergy status to narcotic agent
CPT/HCPCS: 36415; 71250; 72157; 72158; 74176; 74183; 80053; 80307; 81001; 85025; 96361; 96374; 96375; 96376; 99284; A9577; J1100; J1885; J2270; J2405; J7030; A9270

== ENCOUNTER → 2025-03-11 | Outpatient (CLI) | payer MEDICARE, BC, SELFPAY ==
--- NOTE | 2025-03-11 10:08 | XR_ITS ---
Examination: Breast ultrasound complete, bilateral Date and time of exam: March 11, 2025, 10:21 a.m. INDICATIONS: Mammogram June 05, 2024 5 mm focal asymmetry nipple of the left breast Technique: Real-time grayscale ultrasonographic imaging bilateral breasts, including all 4 quadrants as well as nipple retroareolar and axillary regions. Findings: Sonographic images right and left breast demonstrate no cystic or solid masses IMPRESSION: BI-RADS Category 1: Negative studies
== END | disposition home or self-care (01) ==
LOC: CDIM 09:57
PROVIDERS: PCP Family Medicine; Referring Provider Nurse Practitioner Family; Visit Provider Nurse Practitioner Family
DX: C80.1 Malignant (primary) neoplasm, unspecified (principal)
CPT/HCPCS: 76641

== ENCOUNTER 2025-03-12 00:31 | Emergency (ER) | payer MEDICARE, BC, SELFPAY ==
[2025-03-12] VITALS (7 sets, daily range): BP systolic 140–168; BP diastolic 54–88; PULSE 72–85; RESP 11–23; TEMP 36.6; O2SAT 95–99; BMI 20.5
--- NOTE | 2025-03-12 00:49 | XR_ITS ---
EXAMINATION: AP chest single view TECHNIQUE: AP portable upright chest single view Date and time: March 12, 2025, 0123 hours, comparison July 11, 2016 INDICATIONS: Chest pain today back surgery 3 weeks ago FINDINGS: Normal heart size. Minor prominence pulmonary vasculature. Right internal jugular Port-A-Cath tip SVC No lobar pneumonia or pulmonary edema. Prominent osteopenia IMPRESSION: No pneumonia or pulmonary edema
--- NOTE | 2025-03-12 00:49 | EKG_ITS ---
[facility] Test Date: 2025-03-12 Pat Name: MAKENZIE HULL Department: Room: - Gender: Female Curriculum And Assessment Coordinator: : 1955 Requested By: Sha Fernández Order Number: [id number] Reading MD: Sha Fernández Measurements Intervals [place] Rate: 71 P: 74 WA: 149 QRS: 77 QRSD: 101 T: 65 QT: 382 QTc: 418 Interpretive Statements SINUS RHYTHM MODERATE ST DEPRESSION [0.05+ mV ST DEPRESSION] Compared to ECG 12/31/2021 09:46:17 Ectopic atrial rhythm no longer present Short WA interval no longer present Left posterior fascicular block no longer present ST (T wave) deviation still present /store/S0/[id number]/ecg/[id number].pdf
--- NOTE | 2025-03-12 00:50 | PD.EDRME ---
Rapid Medical Screening Exam RME Arrival date/time: 03/12/25 00:31 70F with history of HTN and recent diagnosis (no source found yet) of cancer in T11 presents to ED with back pain that radiates forward, as well as numbness. Patient is going to start chemo and radiation soon. Chief Complaint: Extremity Injury, Upper Vital signs: Vital Signs Temperature 97.8 F 03/12/25 00:38 Pulse Rate 85 03/12/25 00:38 Respiratory Rate 22 H 03/12/25 00:38 Blood Pressure 146/88 H 03/12/25 00:38 Pulse Oximetry (%) 99 03/12/25 00:38 Oxygen Delivery Method Room Air 03/12/25 00:38
[2025-03-12 01:09] LABS: Basophils # (Auto) 0.1 Thou/mm3 (0.0-0.2); Basophils % (Auto) 1 % (0-2.5); Eosinophils # (Auto) 0.0 Thou/mm3 (0.0-0.5); Eosinophils % (Auto) 0 % (0-10); Hematocrit 33.3 % (36.0-46.0); Hemoglobin 11.2 g/dL (12.0-16.0); Immature Granulocytes Auto 0.02 Thou/mm3 (0.00-0.00); Lymphocytes # (Auto) 0.8 Thou/mm3 (1.0-4.8); Lymphocytes % (Auto) 9 % (10-50); Mean Corpuscular HGB Conc 33.6 g/dl (31.0-37.0); Mean Corpuscular Hemoglobin 29.5 pg (25.0-35.0); Mean Corpuscular Volume 88 fL (80-100); Monocytes # (Auto) 0.6 Thou/mm3 (0.0-0.8); Monocytes % (Auto) 6 % (0-12); Neutrophils # (Auto) 7.8 Thou/mm3 (1.8-7.7); Neutrophils % (Auto) 84 % (37-80); Nucleated Red Blood Cell # 0.00 Thou/mm3 (0.00-0.00); Nucleated Red Blood Cell % 0 /100 WBC (0); Platelet Count 476 Thou/mm3 (140-440); RDW Standard Deviation 40.5 fL (36.4-46.3); Red Blood Count 3.80 Miln/mm3 (4.00-5.20); White Blood Count 9.3 Thou/mm3 (3.6-11.0)
[2025-03-12] MEDS: HYDROmorphone INJ 2 MG/ML VIAL IVP (01:22)
[2025-03-12 01:27] LABS: Alanine Aminotransferase 24 U/L (10-49); Albumin, Serum 4.6 gm/dL (3.4-4.8); Albumin/Globulin Ratio 1.6 (1.2-2.2); Alkaline Phosphatase 198 U/L (46-116); Anion Gap 8 (7-16); Aspartate Amino Transferase 14 U/L (0-34); BUN/Creatinine Ratio 17 Ratio (12-20); Bilirubin,Total 0.4 mg/dL (0.3-1.2); Blood Urea Nitrogen 12 mg/dL (9-23); Calcium 11.0 mg/dL (8.3-10.6); Calcium (Corrected) 11.0 mg/dL (8.5-10.1); Carbon Dioxide 27.0 mMol/L (20.0-31.0); Chloride 98 mMol/L (98-107); Creatinine (Component) 0.7 mg/dL (0.6-1.3); Estimated Creatinine Clearance 65.2 mL/min (>60); Globulin 2.8 gm/dL (2.3-3.5); Glucose 148 mg/dL (74-106); Osmolality,Calculated 269 (275-295); Potassium 3.7 mMol/L (3.4-5.1); Sodium 133 mMol/L (136-145); Total Protein 7.4 gm/dL (5.7-8.2); Troponin I < 0.020 ng/mL (0.0-0.045); eGFR > 60 See Note
[2025-03-12 03:21] LABS: Collection Type, Urine Clean Catch
[2025-03-12 03:24] LABS: Bilirubin,Urine Negative (Negative); Blood,Urine Negative (Negative); Clarity,Urine Clear (Clear/Hazy); Color,Urine Colorless (Lt Yel-Yel); Culture Indicated,Urine Not Indicated; Glucose, Urine Negative (Negative); Ketones,Urine Negative (Negative); Leukocyte Esterase,Urine Positive (Negative); Nitrite,Urine Negative (Negative); PH,Urine 6.5 (5.0-7.0); Protein,Urine Negative (Neg - Trace); RBC,Urine 4 /hpf (0-3); Specific Gravity,Urine 1.008 (1.001-1.035); Squamous Epithelial Cell,Urine < 1 /hpf (0-5); Urobilinogen,Urine Negative mg/dL (0.0-1.0); WBC,Urine 1 /hpf (0-5)
[2025-03-12 03:38] LABS: Amphetamine/Methamp Scrn,U Negative (Negative); Barbiturate Screen,Urine Negative (Negative); Benzodiazepines Screen,Urine Negative (Negative); Benzoylecgonine Screen, Ur Negative (Negative); Fentanyl Screen,Urine Negative (Negative); Opiate Screen,Urine Positive (Negative); THC Screen,Urine Negative (Negative)
[2025-03-12] MEDS: ONDANSETRON INJ 2 MG/ML INJ 2 ML 4 MG IVP (07:25)
[2025-03-12] MEDS: LACTULOSE SYRUP 20 GM/30 ML UDC PO (07:26)
[2025-03-12] MEDS: HYDROmorphone INJ 2 MG/ML VIAL 1 MG IVP (07:26)
--- NOTE | 2025-03-12 11:20 | PD.EDUPEX ---
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 Patient is going to start chemo and radiation soon. DR. BUSCH MAIN ED EVALUATION: 70 year old female with history of hypertension presents to the ED for evaluation of severe back pain today. Described as aching in sensation that is located most to the mid to lower back rating as severe 10. Patient reportedly recently diagnosed with cancer in T11. No falls or injuries. No known modifying factors. Related Data Previous Rx's ?Medication ?Instructions ?Recorded hydrocodone 5 mg-acetaminophen 300 1 tab PO Q6H #10 tabs 07/15/18 mg tablet ibuprofen 600 mg tablet 600 mg PO Q6H #60 tabs 07/15/18 amoxicillin 500 mg tablet 500 mg PO BID #14 tabs 12/31/21 lisinopril 20 mg tablet 20 mg PO QDAY #30 tabs 12/31/21 bisacodyl 5 mg tablet,delayed 10 mg (2 x 5 mg) PO BID 03/12/25 release (Dulcolax (bisacodyl)) CONSTIPATION 30 days #120 tabs hydromorphone 2 mg tablet 2 mg PO Q6H PAIN #20 tabs 03/12/25 (Dilaudid) lactulose 10 gram/15 mL oral 20 g (30 mL) PO TID CONSTIPATION 03/12/25 solution #3,000 mL Allergies Allergy/AdvReac Type Severity Reaction Status Date / Time codeine Allergy Intermediate Vomiting Verified 01/15/25 09:00 hydrocodone Allergy Intermediate Vomiting Verified 01/15/25 09:00 Review of Systems Review of Systems Systems Reviewed: All systems reviewed, normal except as documented Past Medical History Past Medical History CARDIAC: Positive Hypercholesterolemia and Hypertension GENITOURINARY: Positive Renal Disease Family History FAMILY HISTORY: Positive Family Cancer Social History SMOKING STATUS: Never smoker SUBSTANCE USE: does not use ED Exam General Limitations: Present no limitations General appearance: Present alert and in no apparent distress Head Head exam: Present atraumatic, normocephalic and normal inspection Eye Eye exam: Present normal appearance, PERRL and EOMI ENT ENT exam: Present normal exam, normal oropharynx and mucous membranes moist Neck Neck exam: Present normal inspection, full ROM and trachea midline Chest Chest inspection: Present normal inspection and symmetric chest wall rise Respiratory Respiratory exam: Present normal lung sounds bilaterally Cardiovascular Cardiovascular exam: Present regular rate, normal rhythm and normal heart sounds Abdominal Exam Abdominal exam: Present soft and normal bowel sounds Extremities Exam Extremities exam: Present normal inspection and full ROM Back Exam Back exam: Present full ROM and other (Tenderness over mid back ) Neurological Exam Neurological exam: Present alert, oriented X3 and CN II-XII intact Psychiatric Psychiatric exam: Present normal affect and normal mood Skin Skin exam: Present warm, dry, intact and normal color Course Quality Measures none Orders Category Date Time Status EKG (ED ONLY) *Do not use* NOW Care 03/12/25 00:49 Completed Insert IV NOW Care 03/12/25 00:49 Completed EKG (ED Only) Stat Exams 03/12/25 00:49 Draft XR chest 1V portable Stat Exams 03/12/25 00:49 Completed CBC Stat Lab 03/12/25 01:02 Completed Comprehensive Metabolic Panel Stat Lab 03/12/25 01:02 Completed Drug Screen,Urine Stat Lab 03/12/25 03:03 Completed Troponin I Stat Lab 03/12/25 01:02 Completed Urinalysis, C/S if Indicated Stat Lab 03/12/25 03:03 Completed HYDROmorphone INJ [Dilaudid Inj] Med 03/12/25 06:42 Discontinued 1 mg IVP X1 ONE HYDROmorphone INJ [Dilaudid Inj] Med 03/12/25 00:49 Discontinued 2 mg IVP X1 ONE Lactulose Syrup [Enulose Syrup] Med 03/12/25 06:48 Discontinued 20 gm PO X1 ONE Ondansetron Inj [Zofran Inj] Med 03/12/25 06:42 Discontinued 4 mg IVP X1 ONE bisacodyL [Dulcolax Supp] Med 03/12/25 06:48 Discontinued 10 mg MO X1 ONE Vital Signs Vital signs: Vital Signs Temperature 97.8 F 03/12/25 00:38 Pulse Rate 85 03/12/25 00:38 Respiratory Rate 22 H 03/12/25 00:38 Blood Pressure 146/88 H 10/10/25 00:38 Pulse Oximetry (%) 99 03/12/25 00:38 Oxygen Delivery Method Room Air 03/12/25 00:38 Pulse ox is 99% on room air which is adequate. Extremity Injury MDM Narrative MDM Narrative:: Vane Zaman am scribing for and in the presence of Dr. Busch. Patient data External records reviewed:: [facility] previous records Clinical information provided by:: patient Social determinants that could affect healthcare access:: none Patient has the following chronic illnesses:: hypertension recently diagnosed with cancer to T11 How is presenting disease/condition affected by chronic disease/condition?: uneffected by Evaluation data The following diagnostics were reviewed and interpreted by me:: lab results, radiology exam(s) and EKG tracing(s) (EKG @ 01:02pm. NSR, rate 71, no STEMI. ) Lab and/or radiology exams considered but not ordered:: None Interpretation Summary: Ordering Physician: Sha Fernández PA-C Date of Service: 03/12/25 Procedure(s): XR chest 1V portable Accession Number(s): [id number] cc: Amol Crystal MD; Ashlye Izquierdo MD; Sha Fernández PA-C~ EXAMINATION: AP chest single view TECHNIQUE: AP portable upright chest single view Date and time: March 12, 2025, 0123 hours, comparison July 11, 2016 INDICATIONS: Chest pain today back surgery 3 weeks ago FINDINGS: Normal heart size. Minor prominence pulmonary vasculature. Right internal jugular Port-A-Cath tip SVC No lobar pneumonia or pulmonary edema. Prominent osteopenia IMPRESSION: No pneumonia or pulmonary edema Dictated By: Amol Crystal MD Signed By: <Electronically signed by Amol Crystal MD in OV> 03/12/25 0801 Medications / Prescriptions Medications or Prescriptions considered but not ordered:: None Medication administrations:: Medication Administration History Discontinued Medications Bisacodyl (Bisacodyl 10 Mg Supp) 10 mg MO X1 ONE; Protocol Stop: 03/12/25 06:49 Last Admin: 03/12/25 07:26 Dose: 10 mg Documented By: TM Hydromorphone HCl (Hydromorphone Inj 2 Mg/Ml Vial) 2 mg IVP X1 ONE Stop: 03/12/25 00:50 Last Admin: 03/12/25 01:22 Dose: 2 mg Documented By: BERNADETTE Hydromorphone HCl (Hydromorphone Inj 2 Mg/Ml Vial) 1 mg IVP X1 ONE Stop: 03/12/25 06:43 Last Admin: 03/12/25 07:26 Dose: 1 mg Documented By: JAH Lactulose (Lactulose Syrup 20 Gm/30 Ml Udc) 20 gm PO X1 ONE; Protocol Stop: 03/12/25 06:49 Last Admin: 03/12/25 07:26 Dose: 20 gm Documented By: JAH Ondansetron HCl (Ondansetron Inj 2 Mg/Ml Inj 2 Ml) 4 mg IVP X1 ONE; Protocol Stop: 03/12/25 06:43 Last Admin: 03/12/25 07:25 Dose: 4 mg Documented By: JAH See above Consultations Consultation(s) initiated? (list below): No Diagnosis Upper Extremity Injury Differential Diagnosis: other (back pain, malignant bone pain ) Most likely diagnosis given after review of the tests above:: Malignant bone pain Admission Indicated Admission indicated?: not indicated Admission Request Was there a request for admission?: No Disposition Plan Disposition Plan: Discharge Discharge Attestation Discharge Attestation: The patient and all family members were given an opportunity to ask questions and understood the discharge instructions. Discharge instructions specifically effects, indications for sooner follow up or return to the emergency department, and the expected course of current diagnosis. Patient condition: Stable Discharge Plan Plan Patient Disposition: HOME (Self Care) Patient condition on transfer: Stable Prescriptions/Referrals Prescriptions/Med Rec: New hydromorphone [Dilaudid] 2 mg tablet 2 mg PO Q6H MDD 4 TABS Qty: 20 0RF lactulose 10 gram/15 mL solution 20 g PO TID MDD 60 GRAMS Qty: 3000 0RF bisacodyl [Dulcolax (bisacodyl)] 5 mg tablet,delayed release (DR/EC) 10 mg PO BID MDD 4 30 Days Qty: 120 0RF No Action ibuprofen 600 mg tablet 600 mg PO Q6H Qty: 60 0RF hydrocodone-acetaminophen 5-300 mg tablet 1 tab PO Q6H MDD 4; Workers Comp Qty: 10 0RF lisinopril 20 mg tablet 20 mg PO QDAY Qty: 30 1RF amoxicillin 500 mg tablet 500 mg PO BID Qty: 14 0RF Referrals: Ashley Izquierdo MD [Primary Care Provider, Family Practice] - In 1 week Problem List Clinical Impression: Malignant bone pain Patient/Caregiver Discharge Instructions Discharge Activity: activity as tolerated Education Materials: ED Chronic Pain Additional Instructions: Follow-up with your doctor on Saturday. You will need a refill of the pain medication. Please stop taking your OxyContin while you are taking Dilaudid orally. Print Language: Greenlandic Stand Alone Forms: Daniela Award Info., Patient Portal Info Letter
== END 2025-03-12 08:19 | disposition home or self-care (01) ==
PROVIDERS: Physician Assistant; Emergency Provider Family Medicine; PCP Family Medicine
DX: G89.3 Neoplasm related pain (acute) (chronic) (principal); I10 Essential (primary) hypertension; K59.00 Constipation, unspecified
CPT/HCPCS: 36415; 71045; 80053; 80307; 81001; 84484; 85025; 93005; 99284; J1171; J2405; A9270

== ENCOUNTER 2025-05-22 20:12 | Emergency (ER) | payer MEDICARE, BC, SELFPAY ==
[2025-05-22 20:13] VITALS: BMI 18.7
[2025-05-22 20:20] VITALS: BP 136/79; PULSE 94; RESP 20; TEMP 36.7; O2SAT 96
--- NOTE | 2025-05-22 20:21 | XR_ITS ---
Examination: CT abdomen and pelvis without contrast. Coronal 3-D reconstructions. Sagittal 2-D reconstructions. Date and time of exam: May 22, 2025, 2143 hours, comparison January 15, 2025 INDICATIONS: Abdominal pain beginning 4 days ago CTDI: vol (mGy): 5.08 DLP: (mGycm): 251 Technique: Axial images of the abdomen have been obtained, 3 mm slice thickness Intravenous contrast material has not been administered. Low dose protocols were performed. One or more of the following dose reduction techniques were used; automated exposure control, adjustment of the mA and/or KV according to patient size, use of iterative reconstruction technique. 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 23 mm Aorta normal size No bowel obstruction No pericecal inflammatory change Calcified areas of uterine fibroid degeneration in the fundus Urinary bladder intact Severe osteopenia Transpedicular thoracic stabilization procedure centered about compressed T11 vertebral body with kyphoplasty Advanced degenerative disc disease L5-S1 IMPRESSION: Recommend renal sonography to exclude 50 mm solid mass posterior left kidney 23 mm angiomyolipoma right kidney No hydronephrosis No CT findings of appendicitis Small calcified areas of uterine fibroid degeneration in the fundus of the uterus Transpedicular thoracic stabilization centered about chronic osteoporotic compression fracture T11 vertebral body with kyphoplasty Advanced degenerative disc disease L5-S1 No visualized common bile duct stones, but given the patient's presentation, consider hepatobiliary sonography follow-up
--- NOTE | 2025-05-22 20:22 | PD.EDRME ---
Rapid Medical Screening Exam RME Arrival date/time: 05/22/25 20:12 This is a case of 70-year-old female with history of bone cancer came in in the emergency room due to abdominal pain radiating to the back since Saturday after chemotherapy Chief Complaint: Abdominal Pain Time Seen by Provider: 05/22/25 20:21 Vital signs: Vital Signs Temperature 98.1 F 05/22/25 20:20 Pulse Rate 94 05/22/25 20:20 Respiratory Rate 20 05/22/25 20:20 Blood Pressure 136/79 H 05/22/25 20:20 Pulse Oximetry (%) 96 05/22/25 20:20 Oxygen Delivery Method Room Air 05/22/25 20:20 Exam: Generalized tenderness abdomen no guarding no rebound no rigidity Clinical Impression: Abdominal pain
[2025-05-22] MEDS: ONDANSETRON ODT 4 MG TABRAP PO (20:41)
[2025-05-22 21:37] LABS: Collection Type, Urine Clean Catch; Squamous Epithelial Cell,Urine 0 /hpf (0-5)
[2025-05-22 21:45] LABS: Bilirubin,Urine Negative (Negative); Blood,Urine Negative (Negative); Clarity,Urine Clear (Clear/Hazy); Color,Urine Colorless (Lt Yel-Yel); Glucose, Urine Negative (Negative); Ketones,Urine Negative (Negative); Leukocyte Esterase,Urine Negative (Negative); Nitrite,Urine Negative (Negative); PH,Urine 6.5 (5.0-7.0); Protein,Urine Negative (Neg - Trace); RBC,Urine 1 /hpf (0-3); Specific Gravity,Urine 1.008 (1.001-1.035); Urobilinogen,Urine Negative mg/dL (0.0-1.0); WBC,Urine 1 /hpf (0-5)
[2025-05-22 21:50] LABS: Basophils # (Auto) 0.0 Thou/mm3 (0.0-0.2); Basophils % (Auto) 1 % (0-2.5); Eosinophils # (Auto) 0.1 Thou/mm3 (0.0-0.5); Eosinophils % (Auto) 3 % (0-10); Hematocrit 39.9 % (36.0-46.0); Hemoglobin 13.1 g/dL (12.0-16.0); Immature Granulocytes Auto 0.01 Thou/mm3 (0.00-0.00); Lymphocytes # (Auto) 0.6 Thou/mm3 (1.0-4.8); Lymphocytes % (Auto) 25 % (10-50); Mean Corpuscular HGB Conc 32.8 g/dl (31.0-37.0); Mean Corpuscular Hemoglobin 28.6 pg (25.0-35.0); Mean Corpuscular Volume 87 fL (80-100); Monocytes # (Auto) 0.1 Thou/mm3 (0.0-0.8); Monocytes % (Auto) 3 % (0-12); Neutrophils # (Auto) 1.7 Thou/mm3 (1.8-7.7); Neutrophils % (Auto) 68 % (37-80); Nucleated Red Blood Cell # 0.00 Thou/mm3 (0.00-0.00); Nucleated Red Blood Cell % 0 /100 WBC (0); Platelet Count 235 Thou/mm3 (140-440); RDW Standard Deviation 42.8 fL (36.4-46.3); Red Blood Count 4.58 Miln/mm3 (4.00-5.20); White Blood Count 2.4 Thou/mm3 (3.6-11.0)
[2025-05-22 22:10] LABS: Alanine Aminotransferase 39 U/L (10-49); Albumin, Serum 4.3 gm/dL (3.4-4.8); Albumin/Globulin Ratio 1.3 (1.2-2.2); Alkaline Phosphatase 228 U/L (46-116); Anion Gap 8 (7-16); Aspartate Amino Transferase 36 U/L (0-34); BUN/Creatinine Ratio 22 Ratio (12-20); Bilirubin,Total 0.5 mg/dL (0.3-1.2); Blood Urea Nitrogen 13 mg/dL (9-23); Calcium 10.3 mg/dL (8.3-10.6); Calcium (Corrected) 10.3 mg/dL (8.5-10.1); Carbon Dioxide 25.9 mMol/L (20.0-31.0); Chloride 103 mMol/L (98-107); Creatinine (Component) 0.6 mg/dL (0.6-1.3); Estimated Creatinine Clearance 69.1 mL/min (>60); Globulin 3.2 gm/dL (2.3-3.5); Glucose 103 mg/dL (74-106); Lipase 30 U/L (12-53); Osmolality,Calculated 273 (275-295); Potassium 4.5 mMol/L (3.4-5.1); Sodium 137 mMol/L (136-145); Total Protein 7.5 gm/dL (5.7-8.2); eGFR > 60 See Note
[2025-05-22 23:40] VITALS: BP 149/96; PULSE 89; RESP 19; TEMP 37; O2SAT 96
--- NOTE | 2025-05-22 23:55 | PD.EDABDPN ---
ED Abdominal Pain RME/HPI General Chief Complaint: Abdominal Pain Stated complaint: ABDOMINAL CRAMPING, LEFT SIDE PAIN Time seen by provider: 05/22/25 20:21 Arrival date/time: 05/22/25 20:12 RME / HPI RME / HPI narrative: 05/22/25 20:12 This is a case of 70-year-old female with history of bone cancer came in in the emergency room due to abdominal pain radiating to the back since Saturday after chemotherapy DR. HUNT MAIN ED EVALUATION: 70 y/o female with Bone CA presents to ED c/o severe abdominal pain and generalized pain throughout the body s/p chemotherapy x 1 week ago. She is followed by Dr. Jacob at [facility]. Patient underwent 10 days of radiation therapy prior to broad spectrum chemotherapy. No origin CA has been identified as of yet. Patient was prescribed Oxycodone, Morphine, and Methadone for pain management with no relief. Reports only Dilaudid successfully manages symtpoms. No other complaints. Exam: Generalized tenderness abdomen no guarding no rebound no rigidity Impression: Abdominal pain Related Data Previous Rx's ?Medication ?Instructions ?Recorded hydrocodone 5 mg-acetaminophen 300 1 tab PO Q6H #10 tabs 07/15/18 mg tablet ibuprofen 600 mg tablet 600 mg PO Q6H #60 tabs 07/15/18 amoxicillin 500 mg tablet 500 mg PO BID #14 tabs 12/31/21 lisinopril 20 mg tablet 20 mg PO QDAY #30 tabs 12/31/21 hydromorphone 2 mg tablet 2 mg PO Q6H PAIN #20 tabs 03/12/25 (Dilaudid) lactulose 10 gram/15 mL oral 20 g (30 mL) PO TID CONSTIPATION 03/12/25 solution #3,000 mL Allergies Allergy/AdvReac Type Severity Reaction Status Date / Time codeine Allergy Intermediate Vomiting Verified 01/15/25 09:00 hydrocodone Allergy Intermediate Vomiting Verified 01/15/25 09:00 Review of Systems Review of Systems Systems Reviewed: All systems reviewed, normal except as documented Past Medical History Past Medical History CARDIAC: Positive Hypercholesterolemia and Hypertension GENITOURINARY: Positive Renal Disease OTHER HISTORY: Positive Cancer Family History FAMILY HISTORY: Positive Family Cancer ED Exam Narrative Physical exam: Generally patient is alert elderly appearing female but in no obvious distress, heart regular rate and rhythm, lungs clear to auscultation equal bilaterally, abdomen soft slightly distended nontympanic and diffusely tender without rebound. Skin is warm pale and dry. Extremities show no edema Course Quality Measures none Orders Category Date Time Status CT abdomen pelvis wo con Stat Exams 05/22/25 20:21 Completed CBC Stat Lab 05/22/25 21:34 Completed Comprehensive Metabolic Panel Stat Lab 05/22/25 21:34 Completed Lipase Stat Lab 05/22/25 21:34 Completed Urinalysis Stat Lab 05/22/25 21:08 Completed HYDROmorphone INJ [Dilaudid Inj] Med 05/22/25 23:55 Discontinued 1 mg IVP X1 ONE Ondansetron Odt [Zofran Odt] Med 05/22/25 20:21 Discontinued 4 mg PO X1 ONE Vital Signs Vital signs: Vital Signs Temperature 98.1 F 05/22/25 20:20 Pulse Rate 94 05/22/25 20:20 Respiratory Rate 20 05/22/25 20:20 Blood Pressure 136/79 H 05/22/25 20:20 Pulse Oximetry (%) 96 05/22/25 20:20 Oxygen Delivery Method Room Air 05/22/25 20:20 Abdominal Pain MDM MDM Narrative MDM Narrative:: Scribe Attestation: Mitra Zaman am scribing for and in the presence of Dr. Hunt. Provider Notation: Although this document has been carefully reviewed, there may still be some phonetic and other typographical errors. These errors are purely grammatical due to imperfections in the software program and should not be construed in any way to compromise the substance of the patient's medical care during this visit. I interpreted all labs. There was no significant abnormality. CT scan down the abdomen pelvis with IV contrast showed a 5 cm solid mass to the left kidney. It also shows bony destruction to T11 which is not new for the patient. Patient received Dilaudid 1 mg IV here in the emergency room. I do long discussion with the patient and her family members at bedside. They do have appropriate follow-up. Patient is currently on chemotherapy and is status post radiation treatment for her cancer. It is uncertain at this time what the primary cancer is. Patient data External records reviewed:: [facility] previous records (Reviewed prior ED records from 03/12/25. Patient was seen for Malignant bone pain.) Clinical information provided by:: patient and family Social determinants that could affect healthcare access:: none Patient has the following chronic illnesses:: None How is presenting disease/condition affected by chronic disease/condition?: exacerbated by Evaluation data The following diagnostics were reviewed and interpreted by me:: lab results and radiology exam(s) Lab and/or radiology exams considered but not ordered:: None Interpretation Summary: RADIOLOGY Abdomen/Pelvis CT: 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 23 mm Aorta normal size No bowel obstruction No pericecal inflammatory change Calcified areas of uterine fibroid degeneration in the fundus Urinary bladder intact Severe osteopenia Transpedicular thoracic stabilization procedure centered about compressed T11 vertebral body with kyphoplasty Advanced degenerative disc disease L5-S1 IMPRESSION: Recommend renal sonography to exclude 50 mm solid mass posterior left kidney 23 mm angiomyolipoma right kidney No hydronephrosis No CT findings of appendicitis Small calcified areas of uterine fibroid degeneration in the fundus of the uterus Transpedicular thoracic stabilization centered about chronic osteoporotic compression fracture T11 vertebral body with kyphoplasty Advanced degenerative disc disease L5-S1 No visualized common bile duct stones, but given the patient's presentation, consider hepatobiliary sonography follow-up Medications / Prescriptions Medications or Prescriptions considered but not ordered:: None Medication administrations:: Medication Administration History Discontinued Medications Hydromorphone HCl (Hydromorphone Inj 2 Mg/Ml Vial) 1 mg IVP X1 ONE Stop: 05/22/25 23:56 Last Admin: 05/23/25 00:09 Dose: 1 mg Documented By: SR Ondansetron HCl (Ondansetron Odt 4 Mg Tabrap) 4 mg PO X1 ONE; Protocol Stop: 05/22/25 20:22 Last Admin: 05/22/25 20:41 Dose: 4 mg Documented By: OA See above if any. Consultations Consultation(s) initiated? (list below): No Diagnosis Differential diagnosis abdominal pain: abdominal pain, constipation, gastroenteritis and small bowel obstruction Most likely diagnosis given after review of the tests above:: None Admission Indicated Admission indicated?: not indicated Explain why admission is indicated or not indicated:: Patient does not meet admission criteria. Admission Request Was there a request for admission?: No Disposition Plan Disposition Plan: Discharge Discharge Attestation Discharge Attestation: The patient and all family members were given an opportunity to ask questions and understood the discharge instructions. Discharge instructions specifically effects, indications for sooner follow up or return to the emergency department, and the expected course of current diagnosis. Patient condition: Stable Discharge Plan Plan Patient Disposition: HOME (Self Care) Prescriptions/Referrals Prescriptions/Med Rec: No Action ibuprofen 600 mg tablet 600 mg PO Q6H Qty: 60 0RF hydrocodone-acetaminophen 5-300 mg tablet 1 tab PO Q6H MDD 4; Workers Comp Qty: 10 0RF lisinopril 20 mg tablet 20 mg PO QDAY Qty: 30 1RF amoxicillin 500 mg tablet 500 mg PO BID Qty: 14 0RF hydromorphone [Dilaudid] 2 mg tablet 2 mg PO Q6H MDD 4 TABS Qty: 20 0RF lactulose 10 gram/15 mL solution 20 g PO TID MDD 60 GRAMS Qty: 3000 0RF Referrals: Klaus Vasquez MD [Primary Care Provider, Family Practice] - In 1 week Problem List Clinical Impression: Abdominal pain Patient/Caregiver Discharge Instructions Education Materials: Abdominal Pain Additional Instructions: Continue current medications. Follow-up with your doctor. Return to ER as needed or if condition worsens. Print Language: Mosotho Stand Alone Forms: Daniela Award Info., Patient Portal Info Letter
[2025-05-23] MEDS: HYDROmorphone INJ 2 MG/ML VIAL 1 MG IVP ×2 (00:09→00:58)
--- NOTE | 2025-05-23 00:26 | PC.NURSE ---
Patient brought in to room 18 at the ED. Patient is endorsing abdominal pain radiating to her back and malaise since her last chemo therapy about a week ago. Patient is awake and alert, family member at the bedside. Pain medication administered as ordered by provider, see MAR. Patient care assumed at this time.
[2025-05-23 00:48] VITALS: BP 109/73; PULSE 91; RESP 18; TEMP 36.4; O2SAT 97
== END 2025-05-23 01:01 | disposition home or self-care (01) ==
PROVIDERS: Nurse Practitioner Family; Emergency Provider Emergency Medicine; PCP Family Medicine
DX: G89.3 Neoplasm related pain (acute) (chronic) (principal); D17.71 Benign lipomatous neoplasm of kidney; D25.9 Leiomyoma of uterus, unspecified; M80.08XA Age-related osteoporosis with current pathological fracture, vertebra(e), initial encounter for fracture; M51.370 Other intervertebral disc degeneration, lumbosacral region with discogenic back pain only; C41.9 Malignant neoplasm of bone and articular cartilage, unspecified
CPT/HCPCS: 36415; 74176; 80053; 81001; 83690; 85025; 96374; 96376; 99283; J1171; Q0162